=== PATIENT | female | born 1955 | race African-American/Black ===

== ENCOUNTER → 2024-02-13 | Outpatient (CLI) | payer MEDICARE ==
[2024-02-13 11:08] LABS: BASOPHILS % 0.4 % (0.0-2.0); HEMATOCRIT. 44.7 % (36.0-48.0); HEMOGLOBIN. 15.1 g/dL (12.0-16.0); LYMPHOCYTES % 22.7 % (20.0-50.0); MEAN CORPUSCULAR HEMOGLOBIN 29.2 pg (28.0-32.0); MEAN CORPUSCULAR HGB CONC 33.8 g/dL (31.0-37.0); MEAN CORPUSCULAR VOLUME 86.5 fL (81.0-99.0); MEAN PLATELET VOLUME 7.2 fl (7.4-10.4); NEUTROPHILS % 69.9 % (40.0-76.0); PLATELET 246 x1000/uL (130-400); RED BLOOD CELL COUNT 5.17 mill/uL (4.2-5.4); RED CELL DISTRIBUTION WIDTH 14.6 % (11.6-14.6); WHITE BLOOD COUNT 5.6 x1000/uL (4.5-11.0)
[2024-02-13 11:46] LABS: CALCIUM 8.8 mg/dL (8.7-10.4); CARBON DIOXIDE 26 mEq/L (21-32); CHLORIDE 109 mEq/L (98-107); CREATININE 0.9 mg/dL (0.6-1.0); GLUCOSE 105 mg/dL (70-105); POTASSIUM 3.9 mEq/L (3.5-5.1); SODIUM 139 mEq/L (136-145); UREA NITROGEN BLOOD 13 mg/dL (9-23)
== END | disposition home or self-care (01) ==
LOC: CARD 10:35
PROVIDERS: ATTEND Internal Medicine
DX: I10 Essential (primary) hypertension (principal); Z86.73 Personal history of transient ischemic attack (TIA), and cerebral infarction without residual deficits
CPT/HCPCS: 36415; 80048; 83880; 85025

== ENCOUNTER → 2024-03-15 | Outpatient (CLI) | payer MEDICARE, MEDICAID | END | disposition home or self-care (01) | LOC: CARD 11:33 | PROVIDERS: ATTEND Internal Medicine | DX: I08.0 Rheumatic disorders of both mitral and aortic valves (principal); I10 Essential (primary) hypertension | CPT/HCPCS: 93306 ==

== ENCOUNTER 2025-04-17 22:22 | Inpatient (IN) | payer MEDICARE, MEDICAID ==
[~2025-04-17] VITALS: Ht 172.7 cm; Wt 81.6 kg
[2025-04-17] MEDS: METHYLPREDNISOLONE SOD SUCC 125MG/2ML (ACT-O-VIAL) IV STA (22:47)
[2025-04-17 22:50] LABS: BASOPHILS % 0.7 % (0.0-2.0); HEMATOCRIT. 38.6 % (36.0-48.0); LYMPHOCYTES % 20.6 % (20.0-50.0); MEAN CORPUSCULAR HEMOGLOBIN 28.4 pg (28.0-32.0); MEAN CORPUSCULAR HGB CONC 33.8 g/dL (31.0-37.0); MEAN CORPUSCULAR VOLUME 84.1 fL (81.0-99.0); MEAN PLATELET VOLUME 7.4 fl (7.4-10.4); MONOCYTES % 12.3 % (2.0-8.0); NEUTROPHILS % 66.4 % (40.0-76.0); PLATELET 244 x1000/uL (130-400); RED BLOOD CELL COUNT 4.59 mill/uL (4.2-5.4); RED CELL DISTRIBUTION WIDTH 14.8 % (11.6-14.6); WHITE BLOOD COUNT 7.4 x1000/uL (4.5-11.0)
[2025-04-17] MEDS: IPRATROPIUM BROMIDE (0.02%) 0.5MG/2.5ML NEB HHN STA (22:50)
[2025-04-17] MEDS: ALBUTEROL (0.083%) 2.5MG/3ML NEB HHN STA (22:51)
[2025-04-17 22:55] VITALS: RESP 17
[2025-04-17 22:59] LABS: CHLORIDE 100 mEq/L (98-107); SODIUM 138 mEq/L (136-145)
[2025-04-17 23:00] LABS: CALCIUM 8.5 mg/dL (8.7-10.4); CARBON DIOXIDE 30 mEq/L (21-32)
[2025-04-17 23:05] LABS: GLUCOSE 130 mg/dL (70-105); UREA NITROGEN BLOOD 19 mg/dL (9-23)
[2025-04-17 23:07] LABS: ALANINE AMINOTRANSFERASE 24 IU/L (10-49); ALBUMIN 4.4 g/dL (3.2-4.8); ASPARTATE AMINOTRANSFERASE 28 IU/L (<34); BILIRUBIN DIRECT 0.1 mg/dL (<=3.0); CREATININE 1.3 mg/dL (0.6-1.0)
[2025-04-17 23:08] LABS: BILIRUBIN TOTAL 0.4 mg/dL (0.1-1.0); TROPONIN I HIGH SENSITIVITY 81 ng/L (3.0-34)
[2025-04-17 23:13] LABS: INR 1.1; PROTHROMBIN TIME 11.5 sec (9.6-11.0)
[2025-04-18] VITALS (7 sets, daily range): BP systolic 90–133; BP diastolic 61–80; PULSE 80–102; RESP 16–20; TEMP 36.2–36.8; O2SAT 95–100
[2025-04-18] MEDS: AMLODIPINE 10MG TABLET PO ONE (00:34)
[2025-04-18] MEDS: LISINOPRIL 40MG TABLET PO STA (00:34)
[2025-04-18 01:22] LABS: TROPONIN I HIGH SENSITIVITY 73 ng/L (3.0-34)
[2025-04-18] MEDS: ASPIRIN 325MG TABLET PO ONE (01:28)
[2025-04-18] MEDS ORDERED: DEXTROSE 50% WATER 50ML SYRINGE IV PRN (01:45)
[2025-04-18] MEDS ORDERED: ONDANSETRON HCL 4MG/2ML INJ IV PRN (01:45)
[2025-04-18] MEDS ORDERED: IPRATROPIUM/ALBUTEROL 0.5-3(2.5)MG/3ML NEB HHN PRN (01:45)
[2025-04-18] MEDS ORDERED: HYDRALAZINE 20MG/ML VIAL IV PRN (01:45)
[2025-04-18] MEDS ORDERED: DOCUSATE SODIUM 100MG CAPSULE PO PRN (01:45)
[2025-04-18] MEDS ORDERED: CLONIDINE 0.1MG TABLET PO PRN (01:45)
[2025-04-18] MEDS ORDERED: ACETAMINOPHEN 325MG TABLET PO PRN ×2 (01:45)
[2025-04-18] MEDS ORDERED: METHYLPREDNISOLONE SOD SUCC 125MG/2ML (ACT-O-VIAL) IV SCH (02:00)
[2025-04-18] MEDS: IPRATROPIUM/ALBUTEROL 0.5-3(2.5)MG/3ML NEB HHN SCH (02:00)
[2025-04-18] MEDS: POTASSIUM CHLORIDE 20MEQ/PACKET PO NR (02:03)
[2025-04-18] MEDS: DOXYCYCLINE 100MG/100ML 100 ML IV NR (02:03)
[2025-04-18 02:18] LABS: PHOSPHORUS 3.3 mg/dL (2.5-4.9)
[2025-04-18] MEDS ORDERED: ASPI-1406 PO (02:36)
[2025-04-18] MEDS ORDERED: ATOR10TA69 PO (02:36)
[2025-04-18] MEDS ORDERED: MULT-1279 PO (02:36)
[2025-04-18] MEDS ORDERED: AMLO10TA80 PO (02:36)
[2025-04-18] MEDS ORDERED: FLUO-413 PO (02:36)
[2025-04-18] MEDS ORDERED: LORA10TA7 PO (02:36)
[2025-04-18] MEDS ORDERED: LISI20TA31 PO (02:36)
[2025-04-18] MEDS ORDERED: DOXYCYCLINE 100MG/100ML 100 ML IV SCH (06:00)
[2025-04-18] MEDS: ENOXAPARIN 40MG/0.4ML SYR SUBCUT SCH (06:08)
[2025-04-18 06:47] LABS: CREATINE KINASE MB FRACTION 2.9 ng/mL (0.5-3.6)
[2025-04-18] MEDS: BLOOD SUGAR DIAGNOSTIC STRIP TEST SCH (07:47)
[2025-04-18] MEDS: INSULIN LISPRO 100 UNITS/ML SUBCUT SCH (09:14)
[2025-04-18] MEDS: DOXYCYCLINE 100MG/100ML 100 ML IV SCH (09:16)
[2025-04-18] MEDS: ASPIRIN 81MG EC TABLET PO SCH (09:16)
[2025-04-18] MEDS: AMLODIPINE 10MG TABLET PO SCH (09:19)
[2025-04-18] MEDS: METHYLPREDNISOLONE SOD SUCC 125MG/2ML (ACT-O-VIAL) IV SCH (10:21)
[2025-04-18 10:31] LABS: POTASSIUM 3.6 mEq/L (3.5-5.1)
[2025-04-18] MEDS: PANTOPRAZOLE SODIUM 40 MG/VIAL IV SCH (12:39)
[2025-04-18 17:10] LABS: BG BASE EXCESS 0.7 mmol/L (-2.0-3.0); BG CARBOXYHEMOGLOBIN 1.1 % (0.5-1.5); BG DEOXYHEMOGLOBIN 10.6 % (0.0-5.0); BG FRACTION INSPIRED OXYGEN 21; BG HCO3 ACT 25.1 mmol/L (21.0-28.0); BG METHEMOGLOBIN 0.3 % (0.5-1.5); BG OXYGEN SATURATION 89.2 % (94.0-98.0); BG PCO2 39.3 mmHg (32.0-45.0); BG PH 7.423 (7.350-7.450); BG PO2 54.7 mmHg (83.0-108.0); BG SAMPLE SITE RIGHT RADIAL; BG VENT MODE ROOM AIR
[2025-04-18 18:42] LABS: CREATINE KINASE MB FRACTION 2.9 ng/mL (0.5-3.6)
[2025-04-18 20:44] LABS: CREATINE KINASE MB FRACTION 2.9 ng/mL (0.5-3.6)
[2025-04-18] MEDS: LISINOPRIL 10MG TABLET PO SCH (21:00)
[2025-04-18] MEDS: ATORVASTATIN CALCIUM 40MG TABLET PO SCH (21:26)
[2025-04-18] MEDS: PREDNISONE 20MG TABLET PO SCH (21:26)
[2025-04-19] VITALS (8 sets, daily range): BP systolic 22–121; BP diastolic 70–120; PULSE 81–96; RESP 18–22; TEMP 36–36.5; O2SAT 89–98
[2025-04-19 06:47] LABS: HEMATOCRIT. 35.3 % (36.0-48.0); HEMOGLOBIN. 12.2 g/dL (12.0-16.0); MEAN CORPUSCULAR HEMOGLOBIN 29.1 pg (28.0-32.0); MEAN CORPUSCULAR HGB CONC 34.5 g/dL (31.0-37.0); MEAN CORPUSCULAR VOLUME 84.4 fL (81.0-99.0); MEAN PLATELET VOLUME 8.1 fl (7.4-10.4); PLATELET 233 x1000/uL (130-400); RED BLOOD CELL COUNT 4.18 mill/uL (4.2-5.4); RED CELL DISTRIBUTION WIDTH 14.9 % (11.6-14.6)
[2025-04-19 07:00] LABS: CALCIUM 9.2 mg/dL (8.7-10.4)
[2025-04-19 07:06] LABS: CREATININE 1.6 mg/dL (0.6-1.0)
[2025-04-19 07:20] LABS: DIFFERENTIAL COMMENT 1
[2025-04-19] MEDS ORDERED: METHYLPREDNISOLONE SOD SUCC 125MG/2ML (ACT-O-VIAL) IV SCH (10:00)
[2025-04-19] MEDS ORDERED: ASPI-1406 PO (16:08)
[2025-04-19] MEDS ORDERED: AMLO10TA80 PO (16:08)
[2025-04-19] MEDS ORDERED: LIP40 PO (16:08)
[2025-04-19] MEDS ORDERED: LISI10TA26 PO (16:08)
[2025-04-19] MEDS ORDERED: P20 PO ×2 (16:12→16:14)
[2025-04-19] MEDS ORDERED: DOXY100C5 PO (16:12)
[2025-04-19 16:50] LABS: PLATELET ESTIMATE NORMAL
[2025-04-20] MEDS ORDERED: FAMOTIDINE 20MG/2ML VIAL IV SCH (09:00)
[2025-04-20] MEDS ORDERED: DOXYCYCLINE HYCLATE 100MG CAPSULE PO SCH (09:00)
== END 2025-04-19 18:40 | disposition home health service (06) | DRG 189 ==
LOC: ER 22:22 → 8WST 04-18 01:11 → ENRESERV 04-18 02:01
PROVIDERS: ADMIT Hospitalist; ATTEND Hospitalist
PROC: 5A09357 Assistance with Respiratory Ventilation, Less than 24 Consecutive Hours, Continuous Positive Airway Pressure (ICD-10-PCS; principal; 2025-04-17)
DX: J96.21 Acute and chronic respiratory failure with hypoxia (principal); I21.A1 Myocardial infarction type 2; J44.1 Chronic obstructive pulmonary disease with (acute) exacerbation; I10 Essential (primary) hypertension; E87.6 Hypokalemia; E78.00 Pure hypercholesterolemia, unspecified; F17.210 Nicotine dependence, cigarettes, uncomplicated; Z88.0 Allergy status to penicillin; Z86.73 Personal history of transient ischemic attack (TIA), and cerebral infarction without residual deficits; Z71.6 Tobacco abuse counseling
CPT/HCPCS: 36415; 36600; 71045; 80048; 80076; 82375; 82550; 82553; 82805; 82962; 83036; 83605; 83735; 83880; 84100; 84132; 84145; 84484; 85025; 86850; 86900; 93005; 93306; 93970; 94070; 94640; 94660; 94664; 99291; J1650; J1815; J2470; J2919; J3490; J7512